=== PATIENT | male | born 1935 | race Two or more races ===

== ENCOUNTER 2019-02-06 09:31 | Emergency (ER) | payer OTHER ==
[~2019-02-06] VITALS: Ht 175.3 cm; Wt 77.1 kg
[2019-02-06] MEDS ORDERED: ATORVASTATIN CA20 MG (09:52)
[2019-02-06] MEDS ORDERED: SERTRALINE HCL25 MG (09:53)
[2019-02-06] MEDS ORDERED: SYNTHROID75 MCG (09:53)
== END 2019-02-06 16:14 | disposition home or self-care (01) ==
LOC: ER 09:31
DX: K29.60 Other gastritis without bleeding (principal); T43.225A Adverse effect of selective serotonin reuptake inhibitors, initial encounter; Y92.89 Other specified places as the place of occurrence of the external cause